=== PATIENT | male | born 1975 ===

== ENCOUNTER → 2019-07-18 07:37 | Outpatient (CLI) | payer OTHER | END | disposition home or self-care (01) | LOC: LAB 07:37 | DX: Z13.1 Encounter for screening for diabetes mellitus (principal); Z13.220 Encounter for screening for lipoid disorders; Z80.0 Family history of malignant neoplasm of digestive organs; Z80.1 Family history of malignant neoplasm of trachea, bronchus and lung; Z12.5 Encounter for screening for malignant neoplasm of prostate ==

== ENCOUNTER 2019-11-20 12:26 | Outpatient (CLI) | payer OTHER | END 2019-11-20 13:00 | disposition home or self-care (01) | LOC: MRI 12:26 | DX: M25.822 Other specified joint disorders, left elbow (principal) | CPT/HCPCS: 73218 ==

== ENCOUNTER 2019-11-28 07:28 | Outpatient (CLI) | payer OTHER | END 2019-11-28 15:00 | disposition home or self-care (01) | LOC: LAB 07:28 | DX: I10 Essential (primary) hypertension (principal) ==

== ENCOUNTER 2019-12-03 08:25 | Day surgery (SDC) | payer OTHER | END 2019-12-03 16:30 | disposition home or self-care (01) | LOC: CIR.AMB 08:25 | DX: S46.122A Laceration of muscle, fascia and tendon of long head of biceps, left arm, initial encounter (principal) ==

== ENCOUNTER 2020-06-25 07:38 | Outpatient (CLI) | payer OTHER | END 2020-06-25 15:00 | disposition home or self-care (01) | LOC: LAB 07:38 | PROVIDERS: ATTEND Specialist | DX: Z13.29 Encounter for screening for other suspected endocrine disorder (principal) ==

== ENCOUNTER 2020-07-05 08:42 | Outpatient (CLI) | payer OTHER | END 2020-07-05 09:03 | disposition home or self-care (01) | LOC: SONOGRAMA 08:42 → MAMO-SONO 08:45 → SONOGRAMA 09:03 | PROVIDERS: ATTEND Specialist | DX: Z13.29 Encounter for screening for other suspected endocrine disorder (principal) ==

== ENCOUNTER → 2021-07-10 07:12 | Outpatient (CLI) | payer OTHER | END | disposition home or self-care (01) | LOC: LAB 07:12 | PROVIDERS: ATTEND Urology | DX: N40.0 Benign prostatic hyperplasia without lower urinary tract symptoms (principal) ==